=== PATIENT | female | born 2005 | race Two or more races ===

== ENCOUNTER 2025-06-26 16:54 | Emergency (ER) | payer OTHER ==
[~2025-06-26] VITALS: Ht 160 cm; Wt 99.8 kg
[2025-06-26] MEDS ORDERED: 0.9 % SODIUM CHLORIDE 1,000 ML IV ONE (18:45)
[2025-06-26] MEDS ORDERED: FAMOtidine 10 MG/ML (4ML VIAL) IV ONE (18:45)
[2025-06-26] MEDS ORDERED: ONDANSETRON HCL 2 MG/ML VIAL IV ONE (18:45)
[2025-06-26] MEDS ORDERED: KETOROLAC TROMETHAMINE 30 MG VIAL IV ONE (18:45)
[2025-06-26 19:05] LABS: BASO % 0.3 % (0.1-1.2); EOS # 0.01 (0.04-0.54); EOS % 0.1 % (0.7-7.0); LYMPH # 1.04 (1.18-3.74); LYMPH % 7.2 % (19.3-53.1); MEAN PLATELET VOLUME 10.80 fl (9.4-12.4); MONO # 0.75 (0.24-0.82); MONO % 5.2 % (4.7-12.5); NEUT # 12.51 (1.56-6.13); NEUT % 86.9 % (34.0-71.1); RED CELL DISTRIBUTION WIDTH 11.5 % (11.6-14.4)
[2025-06-26 19:29] LABS: INR 1.15
[2025-06-26 19:51] LABS: URINE APPEARANCE Clear; URINE BILIRRUBIN Negative (NEGATIVE); URINE BLOOD Negative; URINE COLOR Dark Yellow; URINE GLUCOSE Negative (NEGATIVE); URINE LEUKOCYTE Trace; URINE NITRATE Negative; URINE PROTEIN 30 (NEGATIVE); URINE UROBILINOGEN 1.0 E.U./dl
[2025-06-26 19:56] LABS: ALT/SGPT 15.0 U/L (12-78); AST/SGOT 8.0 U/L (15-37); BILIRUBIN TOTAL 0.81 mg/dL (0.3-1.2); BUN CREA RATIO 9.0 (7.0-25.0); CREATININE SERUM 0.88 mg/dL (0.55-1.02); GFR 81.11; GLOBULINA 3.9 G/DL (2.4-3.5); GLUCOSE FASTING 105.0 mg/dL (65-100); OSMOLALITY SERUM 274.0 MOSM/KG (275-295)
[2025-06-26 19:56] LABS: URINE BACTERIA 1441.1 uL (0.0-1933); URINE EPITHELIAL CELLS 90.7 uL (0.0-38.8); URINE RBC 17.3 uL (0.0-20.8); URINE WBC 41.9 uL (0.0-23.2)
[2025-06-26 20:25] LABS: URINE CAST 0.43 uL (0.0-1.40); URINE KETONE >=160 (NEGATIVE)
[2025-06-26] MEDS ORDERED: PEPCID AC20 MG PO (21:11)
[2025-06-26] MEDS ORDERED: MACROBID 100 M100 MG PO (21:11)
[2025-06-26] MEDS ORDERED: ZOFRAN8 MG PO (21:11)
== END 2025-06-26 21:39 | disposition home or self-care (01) ==
LOC: ER 16:54
PROVIDERS: General Practice
DX: R10.9 Unspecified abdominal pain (principal); O21.8 Other vomiting complicating pregnancy; Z3A.01 Less than 8 weeks gestation of pregnancy